=== PATIENT | male | born 1940 | race Caucasian/White ===

== ENCOUNTER 2017-09-02 10:24 | Emergency (ER) | payer MEDICARE, OTHER ==
[~2017-09-02] VITALS: Ht 180.3 cm; Wt 74.8 kg
[~2017-09-02 10:24] MED LIST: ASPI81CH PO; CYCL10 PO; Carvedilol25 MG PO; IBUP600 PO; LEVOTHYROXIN; LEVSOD100 PO; LEVSOD125 PO; LISINOPRIL TAB 10M; METPRE4DP PO; NAPR550 PO; Norco 5-325 Ta1 EACH PO; Percocet 5-3251 EACH PO; Simvastatin40 MG PO
[2017-09-02] MEDS ORDERED: CYCL10 PO (11:04)
[2017-09-02] MEDS ORDERED: Norco 5-325 Ta1 EACH PO (11:04)
[2018-04-22] MEDS ORDERED: Norco 5-325 Ta1 EACH PO (14:07)
[2018-04-22] MEDS ORDERED: CYCL10 PO (14:07)
[2018-04-23] MEDS ORDERED: Voltaren100 GM TOP (11:03)
[2018-04-23] MEDS ORDERED: Cyclobenzaprine5 MG PO (11:03)
== END 2017-09-02 11:33 | disposition home or self-care (01) ==
LOC: ER 10:24
DX: M54.5 Low back pain (principal); G89.29 Other chronic pain; J44.9 Chronic obstructive pulmonary disease, unspecified; I25.2 Old myocardial infarction; Z79.899 Other long term (current) drug therapy; Z79.82 Long term (current) use of aspirin; Z95.1 Presence of aortocoronary bypass graft; Z95.0 Presence of cardiac pacemaker; Z87.891 Personal history of nicotine dependence
CPT/HCPCS: 81000; 99283

== ENCOUNTER 2018-01-03 10:09 | Emergency (ER) | payer MEDICARE, OTHER ==
[~2018-01-03] VITALS: Ht 180.3 cm; Wt 74.8 kg
[2018-01-03] MEDS ORDERED: Prednisone20 MG PO (10:57)
[2018-01-03] MEDS ORDERED: Norco 5-325 Ta1 EACH PO (10:57)
== END 2018-01-03 11:17 | disposition home or self-care (01) ==
LOC: ER 10:09
DX: G89.29 Other chronic pain (principal); M54.5 Low back pain; J44.9 Chronic obstructive pulmonary disease, unspecified; I25.2 Old myocardial infarction; Z79.899 Other long term (current) drug therapy; Z79.82 Long term (current) use of aspirin; Z87.891 Personal history of nicotine dependence
CPT/HCPCS: 96372; 99283; J1885

== ENCOUNTER → 2018-01-08 | Outpatient (CLI) | payer MEDICARE, OTHER ==
[~2018-01-08] MED LIST changes: +Prednisone20 MG PO
== END | disposition home or self-care (01) ==
LOC: LAB SHORT 09:50 → LAB 09:50
DX: E03.9 Hypothyroidism, unspecified (principal)
CPT/HCPCS: 84443

== ENCOUNTER 2019-01-15 12:19 | Emergency (ER) | payer OTHER ==
[~2019-01-15] VITALS: Ht 182.9 cm; Wt 72.6 kg
[~2019-01-15 12:19] MED LIST changes: +Cyclobenzaprine5 MG PO; +Voltaren100 GM TOP
[2019-01-15] MEDS ORDERED: Percocet 5-3251 EACH PO (12:52)
[2019-01-15] MEDS ORDERED: Robaxin500 MG PO ×2 (12:52→12:58)
== END 2019-01-15 12:58 | disposition home or self-care (01) ==
LOC: ER 12:19
DX: M53.3 Sacrococcygeal disorders, not elsewhere classified (principal); Z79.899 Other long term (current) drug therapy; Z79.82 Long term (current) use of aspirin; J44.9 Chronic obstructive pulmonary disease, unspecified; E03.9 Hypothyroidism, unspecified; I10 Essential (primary) hypertension; Z87.891 Personal history of nicotine dependence; I25.2 Old myocardial infarction
CPT/HCPCS: 96372; 99283-25; J1885

== ENCOUNTER 2019-07-17 12:16 | Emergency (ER) | payer OTHER ==
[~2019-07-17] VITALS: Ht 182.9 cm; Wt 72.6 kg
[~2019-07-17 12:16] MED LIST changes: +Robaxin500 MG PO
[2019-07-17] MEDS ORDERED: Norco 5-325 Ta1 EACH PO (13:50)
[2019-07-17] MEDS ORDERED: NAPR550 PO (13:50)
[2019-07-17] MEDS ORDERED: Robaxin-750750 MG PO (13:50)
== END 2019-07-17 14:00 | disposition home or self-care (01) ==
LOC: ER 12:16
DX: S29.012A Strain of muscle and tendon of back wall of thorax, initial encounter (principal); R07.81 Pleurodynia; J44.9 Chronic obstructive pulmonary disease, unspecified; I25.2 Old myocardial infarction; Z79.899 Other long term (current) drug therapy; X58.XXXA Exposure to other specified factors, initial encounter
CPT/HCPCS: 71101; 96372; 99283-25; J1885

== ENCOUNTER 2021-01-29 07:26 | Emergency (ER) | payer OTHER ==
[~2021-01-29] VITALS: Ht 182.9 cm; Wt 74.8 kg
[~2021-01-29 07:26] MED LIST changes: +Robaxin-750750 MG PO
[2021-01-29] MEDS ORDERED: Voltaren100 GM TOP (08:47)
[2021-01-29] MEDS ORDERED: Cyclobenzaprine5 MG PO (08:47)
== END 2021-01-29 08:57 | disposition home or self-care (01) ==
LOC: ER 07:26
DX: S16.1XXA Strain of muscle, fascia and tendon at neck level, initial encounter (principal); S46.911A Strain of unspecified muscle, fascia and tendon at shoulder and upper arm level, right arm, initial encounter; J44.9 Chronic obstructive pulmonary disease, unspecified; Z95.1 Presence of aortocoronary bypass graft; Z79.899 Other long term (current) drug therapy; W01.0XXA Fall on same level from slipping, tripping and stumbling without subsequent striking against object, initial encounter
CPT/HCPCS: 72040; 73030; 96372; 99283-25; A9270; J1885

== ENCOUNTER 2022-08-04 07:00 | Emergency (ER) | payer OTHER ==
[~2022-08-04] VITALS: Ht 172.7 cm; Wt 54.4 kg
[2022-08-04] MEDS ORDERED: Voltaren100 GM TOP (08:13)
[2022-08-04] MEDS ORDERED: Cyclobenzaprine5 MG PO (08:13)
== END 2022-08-04 08:26 | disposition home or self-care (01) ==
LOC: ER 07:00
DX: M47.812 Spondylosis without myelopathy or radiculopathy, cervical region (principal); M19.011 Primary osteoarthritis, right shoulder; M19.012 Primary osteoarthritis, left shoulder; J44.9 Chronic obstructive pulmonary disease, unspecified; I25.2 Old myocardial infarction; Z95.1 Presence of aortocoronary bypass graft; Z95.0 Presence of cardiac pacemaker; Z87.891 Personal history of nicotine dependence; Z79.890 Hormone replacement therapy; Z79.899 Other long term (current) drug therapy
CPT/HCPCS: 93005; 93010; A9270